=== PATIENT | male | born 1970 | race Caucasian/White ===

== ENCOUNTER 2017-11-18 12:50 | Outpatient (CLI) | payer OTHER ==
[2017-11-18 14:19] LABS: BASOPHILS % (AUTO) 0.6 % (0-1); EOSINOPHILS # (AUTO) 0.2 X10'3 (0-0.9); EOSINOPHILS % (AUTO) 2.9 % (0-6); HEMATOCRIT 45.2 % (42.0-52.0); HEMOGLOBIN 15.5 g/dl (14.0-17.9); LYMPHOCYTES # (AUTO) 1.9 X10'3 (1.1-4.8); LYMPHOCYTES % (AUTO) 24.5 % (21-51); MEAN CORPUSCULAR HEMOGLOBIN 29.9 PG (27.0-31.0); MEAN CORPUSCULAR HGB CONC 34.3 % (33.0-36.5); MEAN CORPUSCULAR VOLUME 87.2 FL (78-98); MEAN PLATELET VOLUME 8.3 FL (7.4-10.4); MONOCYTES # (AUTO) 0.5 X10'3 (0-0.9); MONOCYTES % (AUTO) 5.8 % (2-12); NEUTROPHILS # (AUTO) 5.3 X10'3 (1.8-7.7); NEUTROPHILS % (AUTO) 66.2 % (42-75); PLATELET COUNT 261 X10'3 (140-440); RED BLOOD COUNT 5.19 X10'6 (4.70-6.10); RED CELL DISTRIBUTION WIDTH 11.8 % (11.5-14.5); WHITE BLOOD COUNT 7.9 X10'3 (4.5-11.0)
[2017-11-18 14:39] LABS: ALANINE AMINOTRANSFERASE 41 U/L (12-78); ALBUMIN 4.1 G/DL (3.4-5.0); ALBUMIN/GLOBULIN RATIO 1.1 (1.1-1.5); ALKALINE PHOSPHATASE 61 IU/L (46-116); ANION GAP 10 (8-16); ASPARTATE AMINO TRANSFERASE 29 U/L (10-37); BILIRUBIN,TOTAL 0.5 MG/DL (0.1-1.0); BLOOD UREA NITROGEN 26 MG/DL (7-18); BUN/CREATININE RATIO 21.7 (5.4-32.0); CALCIUM 9.1 MG/DL (8.5-10.1); CHLORIDE 105 MMOL/L (99-107); CHOL/HDL RATIO 8.2 (0.00-4.99); CHOLESTEROL 327 MG/DL (0-200); GLUCOSE 95 MG/DL (70-104); HDL CHOLESTEROL 40 MG/DL (35-60); LDL CHOLESTEROL 223 MG/DL (50-100); POTASSIUM 4.5 MMOL/L (3.5-5.1); SODIUM 141 MMOL/L (135-145); TOTAL CARBON DIOXIDE 26.3 MMOL/L (24-32); TOTAL PROTEIN 7.7 G/DL (6.4-8.2); TRIGLYCERIDES 194 MG/DL (20-135); eGFR 65 ML/MIN
== END 2017-11-18 23:59 | disposition home or self-care (01) ==
LOC: LAB 12:50
PROVIDERS: ATTEND Nurse Practitioner Family
DX: Z00.01 Encounter for general adult medical examination with abnormal findings (principal); E78.5 Hyperlipidemia, unspecified; R53.83 Other fatigue; R00.2 Palpitations
CPT/HCPCS: 36415; 80053; 80061; 85025

== ENCOUNTER 2017-11-25 12:53 | Outpatient (CLI) | payer OTHER | END 2017-11-25 23:59 | disposition home or self-care (01) | LOC: CAR 12:53 | PROVIDERS: ATTEND Nurse Practitioner Family | DX: R00.2 Palpitations (principal) | CPT/HCPCS: 93005 ==

== ENCOUNTER 2018-02-20 12:14 | Outpatient (CLI) | payer OTHER | END 2018-02-20 23:59 | LOC: CARD DIAG 12:14 | PROVIDERS: ATTEND Internal Medicine Cardiovascular Disease | DX: I08.1 Rheumatic disorders of both mitral and tricuspid valves (principal) | CPT/HCPCS: 93306 ==

== ENCOUNTER 2018-03-09 16:59 | Emergency (ER) | payer OTHER ==
[~2018-03-09] VITALS: Ht 182.9 cm; Wt 95.5 kg
[2018-03-09 17:47] VITALS: BP 138/71
== END 2018-03-09 17:51 | disposition home or self-care (01) ==
LOC: ER 16:59
DX: M25.562 Pain in left knee (principal); W22.8XXA Striking against or struck by other objects, initial encounter; Y93.89 Activity, other specified; Y92.89 Other specified places as the place of occurrence of the external cause; Y99.8 Other external cause status
CPT/HCPCS: 73564; 99284

== ENCOUNTER 2018-05-25 13:07 | Outpatient (CLI) | payer OTHER ==
[2018-05-25 13:54] LABS: ALANINE AMINOTRANSFERASE 32 U/L (12-78); ALBUMIN 3.8 G/DL (3.4-5.0); ALBUMIN/GLOBULIN RATIO 1.1 (1.1-1.5); ALKALINE PHOSPHATASE 58 IU/L (46-116); ANION GAP 10 (8-16); ASPARTATE AMINO TRANSFERASE 19 U/L (10-37); BILIRUBIN,TOTAL 0.4 MG/DL (0.1-1.0); BLOOD UREA NITROGEN 28 MG/DL (7-18); BUN/CREATININE RATIO 21.9 (5.4-32.0); CALCIUM 9.3 MG/DL (8.5-10.1); CHLORIDE 104 MMOL/L (99-107); CHOL/HDL RATIO 7.7 (0.00-4.99); CHOLESTEROL 269 MG/DL (0-200); CREATININE 1.28 MG/DL (0.60-1.10); GLUCOSE 108 MG/DL (70-104); HDL CHOLESTEROL 35 MG/DL (35-60); LDL CHOLESTEROL 167 MG/DL (50-100); POTASSIUM 4.1 MMOL/L (3.5-5.1); SODIUM 138 MMOL/L (135-145); TOTAL CARBON DIOXIDE 24.4 MMOL/L (24-32); TOTAL PROTEIN 7.3 G/DL (6.4-8.2); TRIGLYCERIDES 260 MG/DL (20-135); eGFR 60 ML/MIN
== END 2018-05-25 23:59 | disposition home or self-care (01) ==
LOC: LAB 13:07
PROVIDERS: ATTEND Nurse Practitioner Family
DX: E78.5 Hyperlipidemia, unspecified (principal); R53.83 Other fatigue
CPT/HCPCS: 36415; 80053; 80061

== ENCOUNTER 2018-08-03 09:48 | Outpatient (CLI) | payer OTHER | END 2018-08-03 23:59 | disposition home or self-care (01) | LOC: RAD 09:48 | PROVIDERS: ATTEND Family Medicine | DX: M22.42 Chondromalacia patellae, left knee (principal); M23.92 Unspecified internal derangement of left knee; Z87.891 Personal history of nicotine dependence | CPT/HCPCS: 73721 ==

== ENCOUNTER 2018-09-07 09:29 | Outpatient (CLI) | payer OTHER | END 2018-09-07 23:59 | disposition home or self-care (01) | LOC: RAD 09:29 | PROVIDERS: ATTEND Family Medicine | DX: S83.8X2A Sprain of other specified parts of left knee, initial encounter (principal); M17.0 Bilateral primary osteoarthritis of knee; Z87.891 Personal history of nicotine dependence; X58.XXXA Exposure to other specified factors, initial encounter; Y93.89 Activity, other specified; Y92.89 Other specified places as the place of occurrence of the external cause; Y99.8 Other external cause status | CPT/HCPCS: 73565 ==

== ENCOUNTER 2019-01-12 08:49 | Outpatient (CLI) | payer OTHER | END 2019-01-12 23:59 | disposition home or self-care (01) | LOC: RAD 08:49 | PROVIDERS: ATTEND Anesthesiology Pain Medicine | DX: M47.27 Other spondylosis with radiculopathy, lumbosacral region (principal); M48.07 Spinal stenosis, lumbosacral region; Z87.891 Personal history of nicotine dependence | CPT/HCPCS: 72148 ==

== ENCOUNTER 2019-04-07 11:37 | Outpatient (CLI) | payer OTHER ==
[2019-04-07 12:21] LABS: BASOPHILS # (AUTO) 0.1 X10'3 (0-0.2); BASOPHILS % (AUTO) 1.4 % (0-1); EOSINOPHILS # (AUTO) 0.2 X10'3 (0-0.9); EOSINOPHILS % (AUTO) 3.5 % (0-6); HEMATOCRIT 43.7 % (42.0-52.0); HEMOGLOBIN 15.2 g/dl (14.0-17.9); LYMPHOCYTES % (AUTO) 30.8 % (21-51); MEAN CORPUSCULAR HEMOGLOBIN 30.7 PG (27.0-31.0); MEAN CORPUSCULAR HGB CONC 34.7 g/dL (33.0-36.5); MEAN CORPUSCULAR VOLUME 88.3 FL (78-98); MEAN PLATELET VOLUME 8.5 FL (7.4-10.4); MONOCYTES # (AUTO) 0.5 X10'3 (0-0.9); MONOCYTES % (AUTO) 8.1 % (2-12); NEUTROPHILS # (AUTO) 3.7 X10'3 (1.8-7.7); NEUTROPHILS % (AUTO) 56.2 % (42-75); PLATELET COUNT 240 X10'3 (140-440); RED BLOOD COUNT 4.95 X10'6 (4.70-6.10); RED CELL DISTRIBUTION WIDTH 12.6 % (11.5-14.5); WHITE BLOOD COUNT 6.5 X10'3 (4.5-11.0)
[2019-04-07 12:41] LABS: ALANINE AMINOTRANSFERASE 42 U/L (12-78); ALBUMIN 3.7 G/DL (3.4-5.0); ALKALINE PHOSPHATASE 65 IU/L (46-116); ANION GAP 9 (8-16); ASPARTATE AMINO TRANSFERASE 33 U/L (10-37); BILIRUBIN,TOTAL 0.6 MG/DL (0.1-1.0); BLOOD UREA NITROGEN 23 MG/DL (7-18); BUN/CREATININE RATIO 18.7 (5.4-32.0); CALCIUM 9.1 MG/DL (8.5-10.1); CHLORIDE 103 MMOL/L (99-107); CHOL/HDL RATIO 7.3 (0.00-4.99); CHOLESTEROL 298 MG/DL (0-200); CREATININE 1.23 MG/DL (0.60-1.10); GLUCOSE 105 MG/DL (70-104); HDL CHOLESTEROL 41 MG/DL (35-60); LDL CHOLESTEROL 149 MG/DL (50-100); POTASSIUM 3.8 MMOL/L (3.5-5.1); SODIUM 136 MMOL/L (135-145); TOTAL CARBON DIOXIDE 24.5 MMOL/L (24-32); TOTAL PROTEIN 7.3 G/DL (6.4-8.2); TRIGLYCERIDES 502 MG/DL (20-135); eGFR 63 ML/MIN
[2019-04-07 12:58] LABS: C-REACTIVE PROTEIN < 0.05 MG/DL (0.0-0.5)
[2019-04-09 08:17] LABS: MICROALB/CRT, RATIO 2159.6 mg/g creat (0.0-30.0)
== END 2019-04-07 23:59 | disposition home or self-care (01) ==
LOC: RAD 11:37
PROVIDERS: ATTEND Family Medicine
DX: S83.282A Other tear of lateral meniscus, current injury, left knee, initial encounter (principal); S86.111A Strain of other muscle(s) and tendon(s) of posterior muscle group at lower leg level, right leg, initial encounter; M25.462 Effusion, left knee; E78.5 Hyperlipidemia, unspecified; R73.02 Impaired glucose tolerance (oral); E78.1 Pure hyperglyceridemia; R20.2 Paresthesia of skin; N18.1 Chronic kidney disease, stage 1; Z87.891 Personal history of nicotine dependence; X58.XXXA Exposure to other specified factors, initial encounter; Y93.89 Activity, other specified; Y92.89 Other specified places as the place of occurrence of the external cause; Y99.8 Other external cause status
CPT/HCPCS: 36415; 73721; 80053; 80061; 82043; 82570; 85025; 85651; 86140

== ENCOUNTER 2021-06-24 07:50 | Emergency (ER) | payer MEDICAID, OTHER ==
[~2021-06-24] VITALS: Ht 182.9 cm; Wt 95.5 kg
[2021-06-24 08:16] VITALS: BP 184/97
[2021-06-24] MEDS ORDERED: COLC1TAB2 PO (09:40)
== END 2021-06-24 10:04 | disposition home or self-care (01) ==
LOC: ER 07:51
DX: M10.9 Gout, unspecified (principal); M79.672 Pain in left foot; E78.00 Pure hypercholesterolemia, unspecified; Z79.899 Other long term (current) drug therapy
CPT/HCPCS: 73630; 99283

== ENCOUNTER 2021-11-10 07:13 | Emergency (ER) | payer MEDICAID, OTHER ==
[~2021-11-10] VITALS: Ht 182.9 cm; Wt 94.5 kg
[~2021-11-10 07:13] MED LIST: COLC1TAB2 PO
[2021-11-10 07:16] VITALS: BP 175/132
[2021-11-10] MEDS ORDERED: ONDA4TAB12 PO (09:26)
[2021-11-10] MEDS ORDERED: HYDR-3965 PO (09:26)
== END 2021-11-10 09:42 | disposition home or self-care (01) ==
LOC: ER 07:13
DX: M25.561 Pain in right knee (principal); E78.00 Pure hypercholesterolemia, unspecified; Z79.899 Other long term (current) drug therapy
CPT/HCPCS: 73564; 99283

== ENCOUNTER 2023-10-13 23:15 | Emergency (ER) | payer MEDICAID, OTHER ==
[~2023-10-13] VITALS: Ht 182.9 cm; Wt 101.2 kg
[~2023-10-13 23:15] MED LIST changes: +ONDA4TAB12 PO
[2023-10-13] MEDS ORDERED: oxyCODONE/APAP 10/325mg tablet PO ONE (23:45)
[2023-10-13] MEDS ORDERED: colchicine 0.6mg tablet PO ONE (23:45)
[2023-10-14 00:04] LABS: BASOPHILS % (AUTO) 0.5 % (0-1); EOSINOPHILS # (AUTO) 0.2 X10'3 (0-0.9); HEMATOCRIT 39.4 % (42.0-52.0); HEMOGLOBIN 13.7 g/dl (14.0-17.9); LYMPHOCYTES # (AUTO) 1.7 X10'3 (1.1-4.8); LYMPHOCYTES % (AUTO) 22.4 % (21-51); MEAN CORPUSCULAR HEMOGLOBIN 30.7 PG (27.0-31.0); MEAN CORPUSCULAR HGB CONC 34.8 g/dL (33.0-36.5); MEAN CORPUSCULAR VOLUME 88.1 FL (78-98); MEAN PLATELET VOLUME 7.8 FL (7.4-10.4); MONOCYTES # (AUTO) 0.5 X10'3 (0-0.9); NEUTROPHILS # (AUTO) 5.1 X10'3 (1.8-7.7); NEUTROPHILS % (AUTO) 67.1 % (42-75); PLATELET COUNT 221 X10'3 (140-440); RED BLOOD COUNT 4.47 X10'6 (4.70-6.10); RED CELL DISTRIBUTION WIDTH 13.1 % (11.5-14.5); WHITE BLOOD COUNT 7.7 X10'3 (4.5-11.0)
[2023-10-14 00:16] LABS: ALANINE AMINOTRANSFERASE 37 U/L (12-78); ALBUMIN 3.3 G/DL (3.4-5.0); ALBUMIN/GLOBULIN RATIO 0.9 (1.1-1.5); ALKALINE PHOSPHATASE 82 IU/L (46-116); ANION GAP 8 (8-16); ASPARTATE AMINO TRANSFERASE 25 U/L (10-37); BILIRUBIN,TOTAL 0.4 MG/DL (0.1-1.0); BLOOD UREA NITROGEN 22 MG/DL (7-18); BUN/CREATININE RATIO 15.5 (10.0-20.0); CALCIUM 8.4 MG/DL (8.5-10.1); CHLORIDE 102 MMOL/L (99-107); CREATININE 1.42 MG/DL (0.60-1.10); GLUCOSE 122 MG/DL (70-104); POTASSIUM 3.7 MMOL/L (3.5-5.1); SODIUM 135 MMOL/L (135-145); eCRCL 66 ML/MIN; eGFR 52 ML/MIN
[2023-10-14] MEDS ORDERED: colchicine 0.6mg tablet PO STA (00:50)
[2023-10-14] MEDS ORDERED: PRED20TA PO (00:54)
[2023-10-14] MEDS ORDERED: INDO50CA96 PO (00:54)
[2023-10-14 01:31] VITALS: BP 124/70; PULSE 69; RESP 18; TEMP 98.2; O2SAT 95
== END 2023-10-14 01:34 | disposition home or self-care (01) ==
LOC: ER 23:16
DX: M10.9 Gout, unspecified (principal); E78.00 Pure hypercholesterolemia, unspecified; Z79.899 Other long term (current) drug therapy
CPT/HCPCS: 36415; 73630; 80053; 85025; 99284

== ENCOUNTER → 2023-10-23 | Emergency (ER) | payer MEDICAID ==
[~2023-10-23] VITALS: Ht 182.9 cm; Wt 97.7 kg
[~2023-10-23] MED LIST changes: +INDO50CA96 PO; +PRED20TA PO
[2023-10-23 19:39] VITALS: BP 163/106; PULSE 72; RESP 18; TEMP 98.1; O2SAT 98
[2023-10-23 19:54] LABS: BASOPHILS # (AUTO) 0.1 X10'3 (0-0.2); EOSINOPHILS # (AUTO) 0.3 X10'3 (0-0.9); HEMATOCRIT 40.7 % (42.0-52.0); HEMOGLOBIN 14.3 g/dl (14.0-17.9); LYMPHOCYTES # (AUTO) 2.8 X10'3 (1.1-4.8); LYMPHOCYTES % (AUTO) 30.2 % (21-51); MEAN CORPUSCULAR HEMOGLOBIN 30.7 PG (27.0-31.0); MEAN CORPUSCULAR HGB CONC 35.1 g/dL (33.0-36.5); MEAN CORPUSCULAR VOLUME 87.3 FL (78-98); MEAN PLATELET VOLUME 7.9 FL (7.4-10.4); MONOCYTES # (AUTO) 0.7 X10'3 (0-0.9); MONOCYTES % (AUTO) 7.9 % (2-12); NEUTROPHILS # (AUTO) 5.3 X10'3 (1.8-7.7); NEUTROPHILS % (AUTO) 57.9 % (42-75); PLATELET COUNT 325 X10'3 (140-440); RED BLOOD COUNT 4.67 X10'6 (4.70-6.10); RED CELL DISTRIBUTION WIDTH 12.6 % (11.5-14.5); WHITE BLOOD COUNT 9.2 X10'3 (4.5-11.0)
[2023-10-23 20:08] LABS: ALANINE AMINOTRANSFERASE 50 U/L (12-78); ALBUMIN 3.7 G/DL (3.4-5.0); ALBUMIN/GLOBULIN RATIO 0.9 (1.1-1.5); ALKALINE PHOSPHATASE 100 IU/L (46-116); ANION GAP 5 (8-16); BILIRUBIN,TOTAL 0.4 MG/DL (0.1-1.0); BLOOD UREA NITROGEN 27 MG/DL (7-18); BUN/CREATININE RATIO 16.4 (10.0-20.0); CALCIUM 9.3 MG/DL (8.5-10.1); CHLORIDE 99 MMOL/L (99-107); CREATININE 1.65 MG/DL (0.60-1.10); GLUCOSE 107 MG/DL (70-104); POTASSIUM 4.3 MMOL/L (3.5-5.1); SODIUM 132 MMOL/L (135-145); TOTAL PROTEIN 7.7 G/DL (6.4-8.2); eCRCL 57 ML/MIN; eGFR 44 ML/MIN
[2023-10-23 20:55] LABS: ASPARTATE AMINO TRANSFERASE 29 U/L (10-37); PRO BRAIN NATRIURETIC PEPTIDE < 30 PG/ML (0-125)
== END | disposition left against medical advice (07) ==
LOC: ER 19:05
DX: R07.89 Other chest pain (principal); Z53.21 Procedure and treatment not carried out due to patient leaving prior to being seen by health care provider
CPT/HCPCS: 36415; 80053; 83880; 84484; 85025; 93005; 99281; 99284

== ENCOUNTER 2023-10-24 11:02 | Emergency (ER) | payer MEDICAID ==
[~2023-10-24] VITALS: Ht 182.9 cm; Wt 97.7 kg
[2023-10-24 11:58] LABS: BASOPHILS # (AUTO) 0.1 X10'3 (0-0.2); BASOPHILS % (AUTO) 0.8 % (0-1); EOSINOPHILS # (AUTO) 0.2 X10'3 (0-0.9); EOSINOPHILS % (AUTO) 2.7 % (0-6); HEMATOCRIT 43.3 % (42.0-52.0); LYMPHOCYTES # (AUTO) 2.2 X10'3 (1.1-4.8); LYMPHOCYTES % (AUTO) 27.2 % (21-51); MEAN CORPUSCULAR HEMOGLOBIN 30.2 PG (27.0-31.0); MEAN CORPUSCULAR HGB CONC 34.5 g/dL (33.0-36.5); MEAN CORPUSCULAR VOLUME 87.4 FL (78-98); MEAN PLATELET VOLUME 7.6 FL (7.4-10.4); MONOCYTES # (AUTO) 0.8 X10'3 (0-0.9); MONOCYTES % (AUTO) 9.3 % (2-12); NEUTROPHILS # (AUTO) 4.9 X10'3 (1.8-7.7); PLATELET COUNT 346 X10'3 (140-440); RED BLOOD COUNT 4.96 X10'6 (4.70-6.10); RED CELL DISTRIBUTION WIDTH 12.7 % (11.5-14.5); WHITE BLOOD COUNT 8.1 X10'3 (4.5-11.0)
[2023-10-24 12:01] LABS: ALANINE AMINOTRANSFERASE 47 U/L (12-78); ALBUMIN 3.7 G/DL (3.4-5.0); ALBUMIN/GLOBULIN RATIO 0.9 (1.1-1.5); ALKALINE PHOSPHATASE 97 IU/L (46-116); ANION GAP 8 (8-16); ASPARTATE AMINO TRANSFERASE 22 U/L (10-37); BILIRUBIN,TOTAL 0.5 MG/DL (0.1-1.0); BLOOD UREA NITROGEN 24 MG/DL (7-18); BUN/CREATININE RATIO 16.3 (10.0-20.0); CALCIUM 9.6 MG/DL (8.5-10.1); CHLORIDE 100 MMOL/L (99-107); CREATININE 1.47 MG/DL (0.60-1.10); GLUCOSE 91 MG/DL (70-104); POTASSIUM 4.7 MMOL/L (3.5-5.1); SODIUM 136 MMOL/L (135-145); TOTAL CARBON DIOXIDE 27.7 MMOL/L (24-32); TOTAL PROTEIN 7.9 G/DL (6.4-8.2); eCRCL 64 ML/MIN; eGFR 50 ML/MIN
[2023-10-24 12:09] LABS: PRO BRAIN NATRIURETIC PEPTIDE < 30 PG/ML (0-125)
[2023-10-24 13:19] VITALS: TEMP 97.4
[2023-10-24] MEDS ORDERED: ketorolac tromethamine 15mg/ml inj. IM ONE (13:45)
[2023-10-24] MEDS ORDERED: LORazepam 0.5 MG tablet PO PRN (13:45)
[2023-10-24 14:03] VITALS: BP 122/73; PULSE 97; RESP 20; O2SAT 98
== END 2023-10-24 14:11 | disposition home or self-care (01) ==
LOC: ER 11:03
DX: M94.0 Chondrocostal junction syndrome [Tietze] (principal); R07.89 Other chest pain; E78.00 Pure hypercholesterolemia, unspecified; G89.29 Other chronic pain; Z79.899 Other long term (current) drug therapy
CPT/HCPCS: 36415; 71045; 80053; 83880; 84484; 85025; 93005; 96372; 99285; J1885

== ENCOUNTER 2024-06-29 09:52 | Outpatient (CLI) | payer OTHER ==
[~2024-06-29 09:52] MED LIST changes: -COLC1TAB2 PO; +ONDA-243 PO; -ONDA4TAB12 PO; -PRED20TA PO; +PROB1TAB2 PO
== END 2024-06-29 23:59 | disposition home or self-care (01) ==
LOC: MRI02 09:52
PROVIDERS: ATTEND Physician Assistant
DX: M47.26 Other spondylosis with radiculopathy, lumbar region (principal); M48.07 Spinal stenosis, lumbosacral region; M43.17 Spondylolisthesis, lumbosacral region; N28.1 Cyst of kidney, acquired
CPT/HCPCS: 72148

== ENCOUNTER 2025-05-11 16:06 | Emergency (ER) | payer MEDICARE, MEDICAID ==
[~2025-05-11] VITALS: Ht 182.9 cm; Wt 97.7 kg
[2025-05-11 16:57] LABS: MEAN PLATELET VOLUME 8.0 FL (7.4-10.4); RED CELL DISTRIBUTION WIDTH 12.7 % (11.5-14.5)
[2025-05-11 17:13] LABS: CREATININE 1.46 MG/DL (0.60-1.10); TOTAL CARBON DIOXIDE 26.8 MMOL/L (24-32); eCRCL 63 ML/MIN; eGFR 50 ML/MIN
[2025-05-11 17:34] VITALS: TEMP 98.1
[2025-05-11 18:30] VITALS: BP 144/92; PULSE 79; RESP 17; O2SAT 98
[2025-05-11] MEDS ORDERED: PRED10TA23 PO (18:43)
--- NOTE | 2025-05-11 18:44 | Physician Documentation ---
History of Present Illness ~ Chief Complaint: Foot pain Stated Complaint: FOOT PAIN Time Seen by MD: 17:41 Primary Medical Doctor: NONE Mode of Arrival: POV HPI 65-year-old male with a history of gout presents with right ankle pain and swelling. States he has been taking allopurinol as directed and modified his diet. He is not currently utilizing any corticosteroids. Also denies any injury Day of Onset: May 12, 2025 Tetanus witin 5 years: Yes Medication Reconciliation Allergies: Coded Allergies: No Known Allergies (Unverified , 05/11/25) Scheduled Colchicine/Probenecid (Probenecid-Colchicine Tabs), 1 TAB PO BID Indomethacin (Indomethacin), 1 CAP PO Q8H ONDANSETRON ODT 4mg tablet (Ondansetron Odt), 1 TABLET PO Q6H Prednisone (Prednisone), 1 TAB PO BID Past Medical History Past Medical History: High Cholesterol, Chronic Back Pain, Gout Past Surgical History: no surgical history Smoking Status: Never smoker Drug Use: none Lives with: Family Lives In: Home Occupation: employed Review of Systems All Other Systems at this time: Reviewed and Negative ROS As stated above in the HPI, otherwise all systems are reviewed and negative. Physical Exam Vital Signs: Temperature: 98.1, Source: Temporal, Heart Rate: 79, Respiratory Rate: 17, BP: 144/92, Pulse Oximetry: 98, Weight: 97.730 Oxygen Flow Rate: 0 Physical Exam General: Alert, no apparent distress. HEENT: PERRL, EOMI, no injection, moist mucous membranes. Extremities: Normal range of motion, no deformity. Right ankle and foot eryth ematous at the joint, swollen as well Neurologic: Oriented x4. Psychiatric: Normal mood and affect. Skin: Normal color, warm and dry. No edema, no ecchymosis. Progress Results/Orders Results/Orders Completed Orders - JOSE E RODRÍGUEZ NP Prednisone Tablet (Prednisone Tablet) (05/11/25 18:20) Vital Signs 05/11/25 05/11/25 05/11/25 05/11/25 16:11 17:34 17:35 18:30 Temp 98.1 98.1 Pulse 89 74 79 Resp 16 16 17 B/P (MAP) 163/116 138/86 (103) 144/92 (109) Pulse Ox 99 99 98 O2 Flow Rate 0 0 0 Laboratory Tests Test 05/11/25 16:47 White Blood Count 9.3 Red Blood Count 4.60 L Hemoglobin 13.9 L Hematocrit 39.7 L Mean Corpuscular Volume 86.4 Mean Corpuscular Hemoglobin 30.2 Mean Corpuscular Hemoglobin Concent 35.0 Red Cell Distribution Width 12.7 Platelet Count 264 Mean Platelet Volume 8.0 Neutrophils (%) (Auto) 66.2 Lymphocytes (%) (Auto) 22.2 Monocytes (%) (Auto) 7.6 Eosinophils (%) (Auto) 3.3 Basophils (%) (Auto) 0.7 Neutrophils # (Auto) 6.1 Lymphocytes # (Auto) 2.1 Monocytes # (Auto) 0.7 Eosinophils # (Auto) 0.3 Basophils # (Auto) 0.1 CBC Comment Sodium Level 134 L Potassium Level 5.0 Chloride Level 100 Carbon Dioxide Level 26.8 Anion Gap 7 L Blood Urea Nitrogen 14 Creatinine 1.46 H Estimated GFR/1.73 m2 50 BUN/Creatinine Ratio 9.6 L Glucose Level 95 Uric Acid 5.4 Calcium Level 9.3 Albumin 3.8 Chemistry Comments Departure Disposition: 01 HOME / SELF CARE / HOMELESS Impression: Primary Impression: Gout Condition: Stable Discharge Instructions: Gout, [id number] Referrals: NO PRIMARY CARE PROVIDER (PCP) Prescriptions Prednisone (Prednisone) 10 Mg Tablet 1 TAB PO BID for 5 Days, #10 TAB Prov: JOSE E RODRÍGUEZ NP 05/11/25 Education Educated: Patient Educated regarding: diagnosis Signature Scribe Signature: t Attestation: Scribed for Jose E Rodríguez [employer] by Jose E Reynoso NP . 05/11/25 18:44 JOSE E RODRÍGUEZ NP May 11, 2025 18:44
== END 2025-05-11 18:59 | disposition home or self-care (01) ==
LOC: ER 16:06
DX: M10.9 Gout, unspecified (principal); E78.00 Pure hypercholesterolemia, unspecified
CPT/HCPCS: 36415; 80048; 84550; 85025; 99283; J7512

== ENCOUNTER 2025-08-01 12:28 | Outpatient (CLI) | payer OTHER ==
[~2025-08-01 12:28] MED LIST changes: +ALBU18HF2 INH
--- NOTE | 2025-08-01 13:23 | RADIOLOGY REPORT ---
INDICATION: INTERVERTEBRAL DISC DISORDERS W/ MYELOPATHY,LUMBAR COMPARISON: MR MRI LUMBAR SPINE on DOS: 06/29/24, MRI LUMBAR SPINE on DOS: 01/12/19 TECHNIQUE: 8 views of the lumbar spine were obtained. FINDINGS: Moderate multilevel degenerative disc disease of the lumbosacral spine. No acute fracture, vertebral compression deformity or aggressive osseous lesions. The paravertebral soft tissues are grossly unremarkable. IMPRESSION: No acute fracture. Moderate multilevel degenerative disc disease of the lumbosacral spine.
--- NOTE | 2025-08-01 14:49 | RADIOLOGY REPORT ---
PROCEDURE: MR MRI LUMBAR SPINE INDICATION: INTERVERTEBRAL DISC DISORDER WITH MYELOPATHY, LUMBAR REGION Exam Date: 08/01/2025 01:25 PM COMPARISON: DI LUMBAR SPINE COMPLTE on DOS: 08/01/25, MR MRI LUMBAR SPINE on DOS: 06/29/24, MRI LUMBAR SPINE on DOS: 01/12/19 TECHNIQUE: MRI lumbar spine without intravenous contrast. FINDINGS: The lumbar alignment is intact. The vertebral body heights and marrow signal are within normal limits. The visualized distal spinal cord and conus medullaris are within normal limits. The conus medullaris appears to terminate within normal limits. The visualized retroperitoneal and paraspinal soft tissues are unremarkable. Moderate degenerative disc disease throughout the lumbar spinal discoid loss and disc desiccation The following axial levels are detailed below: T12-L1: Unremarkable. L1-L2: Mild diffuse posterior disc bulge indenting the anterior thecal sac. No central canal narrowing. No foraminal narrowing. L2-L3: Mild diffuse posterior disc bulge indenting the anterior thecal sac. No central canal narrowing. No foraminal narrowing. L3-L4: Mild diffuse posterior disc bulge indenting the anterior thecal sac. No central canal narrowing. No foraminal narrowing. L4-L5: Mild diffuse posterior disc bulge indenting the anterior thecal sac. No central canal narrowing. Mild bilateral foraminal narrowing. L5-S1: Mild diffuse posterior disc bulge indenting the anterior thecal sac. Bilateral facet arthropathy. No central canal narrowing. Moderate left foraminal narrowing. Bilateral renal cortical cysts. IMPRESSION: Moderate degenerative disease throughout the lumbar spine without large focal disc herniation, spinal stenosis, or focal nerve root impingement. Disc bulging combined with facet degenerative changes result in moderate left foraminal narrowing at L5-S1
[2025-08-01] MEDS ORDERED: GADOTERATE MEGLUMINE 7.5 MMOL/15 ML VIAL IV ONE (18:27)
== END 2025-08-01 23:59 | disposition home or self-care (01) ==
LOC: MRI 12:28
PROVIDERS: ATTEND Pain Medicine Interventional Pain Medicine
DX: M51.17 Intervertebral disc disorders with radiculopathy, lumbosacral region (principal); M51.06 Intervertebral disc disorders with myelopathy, lumbar region; M48.07 Spinal stenosis, lumbosacral region; M47.27 Other spondylosis with radiculopathy, lumbosacral region
CPT/HCPCS: 72110; 72158; A9575